=== PATIENT | female | born 1990 | race Caucasian/White ===

== ENCOUNTER → 2017-10-10 | Outpatient (CLI) | payer OTHER | LOC: M RAD 13:19 | DX: Z34.82 Encounter for supervision of other normal pregnancy, second trimester (principal); Z3A.20 20 weeks gestation of pregnancy | CPT/HCPCS: 76811 ==

== ENCOUNTER → 2017-11-02 | Outpatient (CLI) | payer OTHER | LOC: M SMT 11:20 | DX: Z36.2 Encounter for other antenatal screening follow-up (principal); Z3A.23 23 weeks gestation of pregnancy | CPT/HCPCS: 76816 ==

== ENCOUNTER → 2018-02-01 | Outpatient (REF) | payer BC | LOC: M LAB REF 13:06 | DX: Z34.83 Encounter for supervision of other normal pregnancy, third trimester (principal) | CPT/HCPCS: 87186 ==

== ENCOUNTER 2018-03-04 10:22 | Inpatient (IN) | payer BC ==
[2018-03-04] MEDS: PENICILLIN G POTASSIUM IV 5 MU in D5W MINI-BAG PLUS 100 ML IV (11:02)
[2018-03-04 11:04] LABS: HEMOGLOBIN 13.4 g/dl (12.0-15.5); MEAN CORPUSCULAR HEMOGLOBIN 31.4 pg (27.0-33.0); MEAN CORPUSCULAR HGB CONC 36.2 g/dl (32.0-36.5); MEAN CORPUSCULAR VOLUME 86.7 fl (80.0-96.0); PLATELET COUNT, AUTOMATED 143 10^3/uL (150-450); RED BLOOD COUNT 4.27 10^6/uL (4.00-5.40); RED CELL DISTRIBUTION WIDTH 12.7 % (11.5-14.5)
[2018-03-04] MEDS ORDERED: FENTANYL 2MCG/ML ROPIVACAINE 0.2% IN 0.9% NACL 200ML IVBAG As Ordered (11:26)
[2018-03-04] MEDS ORDERED: OXYTOCIN 30 UNITS IN 0.9% NaCl 500ML IV BAG (J2590) As Ordered (12:01)
[2018-03-04] MEDS ORDERED: NALOXONE INJ 0.4 MG/1 ML VIAL (J2310) IV (12:15)
[2018-03-04] MEDS ORDERED: REFRIGERATOR IV KEYS XX (12:15)
[2018-03-04] MEDS ORDERED: FENTANYL/ROPIVACAINE/NACL BAG 200 ML EPIDURAL (12:15)
[2018-03-04] MEDS ORDERED: ONDANSETRON 4MG/2ML VIAL (J2405) IV ×2 (12:15→17:30)
[2018-03-04] MEDS ORDERED: diphenhydrAMINE INJ 50MG/ML VIAL (J1200) IV (12:15)
[2018-03-04] MEDS ORDERED: EPIDURAL/PCA KEYS XX (12:15)
[2018-03-04] MEDS ORDERED: LACTATED RINGER'S 1000 ML IV (12:15)
[2018-03-04] MEDS ORDERED: ePHEDrine SULFATE 25 MG/5 ML(5MG/ML) SYRINGE IV (12:15)
[2018-03-04] MEDS ORDERED: EPIDURAL COMMENT XX (12:15)
[2018-03-04] MEDS: LR 1,000 ML IV ×2 (12:48)
[2018-03-04] MEDS: PENICILLIN G POTASSIUM IV 2.5 MU in APPROPRIATE DILUENT 1 EA IV (15:02)
[2018-03-04] MEDS: OXYTOCIN DRIP 30 UNITS in APPROPRIATE DILUENT 1 EA IV (17:19)
[2018-03-04] MEDS ORDERED: ANUSOL HC CREAM 30GM TOP (17:30)
[2018-03-04] MEDS ORDERED: METHYLERGONOVINE MALEATE 0.2 MG TAB PO (17:30)
[2018-03-04] MEDS: RHOGAM 300 MCG (1500 IU) INJ (J2790) IM (20:46)
[2018-03-04] MEDS: MEASLES,MUMPS,RUBELLA VACCINE INJ (MMR-II) (90707) SC (20:46)
[2018-03-04] MEDS: IBUPROFEN 800 MG TAB PO (20:47)
[2018-03-04] MEDS: DOCUSATE SODIUM 100 MG CAP PO (20:51)
[2018-03-04] MEDS: ACETAMINOPHEN 500 MG TAB PO (22:28)
[2018-03-05] MEDS: IBUPROFEN 800 MG TAB PO ×2 (05:41→16:02)
[2018-03-05] MEDS: ACETAMINOPHEN 500 MG TAB PO ×2 (05:45→16:55)
[2018-03-05] MEDS: PRENATAL VITAMINS CHEWABLE TABLET PO (09:43)
[2018-03-06] MEDS: ACETAMINOPHEN 500 MG TAB PO (04:13)
[2018-03-06] MEDS: IBUPROFEN 800 MG TAB PO ×2 (04:13→12:09)
[2018-03-06] MEDS: PRENATAL VITAMINS CHEWABLE TABLET PO (07:36)
[2018-03-06] MEDS: DIBUCAINE 1% OINTMENT 30GM TOP (07:39)
== END 2018-03-06 12:15 | disposition home or self-care (01) | DRG 560 ==
LOC: M LDO 10:22 → M LDI 10:45 → M OBS 18:47
PROVIDERS: Advanced Practice Midwife
PROC: 10E0XZZ Delivery of Products of Conception, External Approach (ICD-10-PCS; principal; 2018-03-04)
PROC: 0KQM0ZZ Repair Perineum Muscle, Open Approach (ICD-10-PCS; 2018-03-04)
DX: O48.0 Post-term pregnancy (principal); O99.824 Streptococcus B carrier state complicating childbirth; Z37.0 Single live birth; Z3A.40 40 weeks gestation of pregnancy; O70.1 Second degree perineal laceration during delivery

== ENCOUNTER → 2018-08-30 | Outpatient (REF) | payer BC | LOC: M LAB REF 19:05 | DX: Z12.4 Encounter for screening for malignant neoplasm of cervix (principal) | CPT/HCPCS: G0123 ==

== ENCOUNTER → 2019-05-07 | Outpatient (CLI) | payer BC ==
[~2019-05-07] MED LIST: IBUP-1114 PO; MAPA500T2 PO; PRENTAB9 PO
[2019-05-07 18:00] LABS: BASO % 0.3 % (0.0-1.0); EOS # 0.1 10^3/uL (0.0-0.50); HEMATOCRIT 35.1 % (36.0-47.0); HEMOGLOBIN 12.3 g/dl (12.0-15.5); LYMPH # 1.7 10^3/uL (1.5-6.5); LYMPH % 27.9 % (24.0-44.0); MEAN CORPUSCULAR HEMOGLOBIN 31.2 pg (27.0-33.0); MEAN CORPUSCULAR VOLUME 89.1 fl (80.0-96.0); MONO # 0.5 10^3/uL (0.0-0.8); MONO % 7.8 % (0.0-5.0); NEUTROPHILS # 3.9 10^3/uL (1.8-7.7); NEUTROPHILS % 62.8 % (36.0-66.0); PLATELET COUNT, AUTOMATED 213 10^3/uL (150-450); RED BLOOD COUNT 3.94 10^6/uL (4.00-5.40); WHITE BLOOD COUNT 6.1 10^3/uL (4.0-10.0)
[2019-05-08 09:12] LABS: HIV 1&2 SCREEN CENTAUR NEGATIVE (NEGATIVE); RUBELLA IgG QUALITATIVE IMMUNE (IMMUNE)
== END ==
LOC: M SMT 15:12
PROVIDERS: ATTEND Advanced Practice Midwife
DX: Z34.81 Encounter for supervision of other normal pregnancy, first trimester (principal); Z3A.00 Weeks of gestation of pregnancy not specified

== ENCOUNTER → 2019-05-28 | Outpatient (REF) | payer BC ==
[2019-05-28 20:20] LABS: CHLAMYDIA DNA AMPLIFICATION NEGATIVE (NEGATIVE); GC DNA AMPLIFICATION NEGATIVE (NEGATIVE)
== END ==
LOC: M LAB REF 17:55
PROVIDERS: ATTEND Advanced Practice Midwife
DX: Z34.80 Encounter for supervision of other normal pregnancy, unspecified trimester (principal)

== ENCOUNTER → 2019-07-11 | Outpatient (CLI) | payer BC ==
--- NOTE | 2019-07-11 19:09 | REP ---
Clinical: Anatomical evaluation. Comparison: None . Findings: Examination demonstrates a single live intrauterine in breech presentation. motion is identified by technologist. Placenta is noted anterior and grade zero without evidence for placenta previa or abruption. Amniotic fluid volume is normal. Cervix measures 3.0 cm in length and appears closed. No evidence for nuchal cord. Gestational age by LMP 19 weeks 2 days with SHAKA 12/03/2019 . Gestational age by current measurements 19 weeks 1 day with SHAKA 12/04/2019 . FHR equals 142 beats per minute. BPD 4.6 cm 19 weeks 5 days HC 16.7 cm 19 weeks 3 days AC 13.5 cm 19 weeks 0 days FL 2.8 cm 18 weeks 3 day HL 2.8 cm 19 weeks 0 day HC/AC ratio 1.24 Estimated weight 259 grams ( 29 percentile). Anatomical assessment demonstrates normal structures including cranium, choroid plexus, cavum, cerebellum/posterior fossa, facial features, lungs, ventricular outflow tracts, diaphragm, stomach, cord insertion/three-vessel cord, kidneys/bladder, spine, and extremities. Four-chamber heart view demonstrates echogenic focus within the left cardiac ventricle likely prominent chordae tendineae. Impression: Single live intrauterine in breech presentation demonstrating appropriate interval growth. Anatomical findings as described above. Electronically Signed by Norris Plascencia MD 07/11/2019 07:00 P
== END ==
LOC: M RAD 12:29
PROVIDERS: ATTEND Advanced Practice Midwife
DX: Z36.89 Encounter for other specified antenatal screening (principal); Z3A.19 19 weeks gestation of pregnancy

== ENCOUNTER → 2019-11-13 | Outpatient (REF) | payer OTHER | LOC: M WHC 10:35 | PROVIDERS: ATTEND Specialist | DX: Z34.83 Encounter for supervision of other normal pregnancy, third trimester (principal) ==

== ENCOUNTER 2019-11-30 00:06 | Inpatient (IN) | payer BC, OTHER ==
[~2019-11-30] VITALS: Ht 162.6 cm; Wt 66.1 kg
[2019-11-30] MEDS ORDERED: PENICILLIN G POTASSIUM IV 5 MU in D5W MINI-BAG PLUS 100 ML IV STA (00:17)
[2019-11-30] MEDS ORDERED: LACTATED RINGER'S 1000 ML IV STA (00:17)
[2019-11-30] MEDS ORDERED: LR 1,000 ML IV SCH ×2 (00:17→01:39)
[2019-11-30] MEDS ORDERED: OXYTOCIN 30 UNITS IN 0.9% NaCl 500ML IV BAG (J2590) As Ordered ONE (00:30)
[2019-11-30 00:31] LABS: HEMATOCRIT 36.8 % (36.0-47.0); HEMOGLOBIN 12.9 g/dl (12.0-15.5); MEAN CORPUSCULAR HEMOGLOBIN 31.8 pg (27.0-33.0); MEAN CORPUSCULAR HGB CONC 35.1 g/dl (32.0-36.5); MEAN CORPUSCULAR VOLUME 90.6 fl (80.0-96.0); PLATELET COUNT, AUTOMATED 143 10^3/uL (150-450); RED BLOOD COUNT 4.06 10^6/uL (4.00-5.40); WHITE BLOOD COUNT 12.5 10^3/uL (4.0-10.0)
[2019-11-30 00:46] VITALS: BP 107/57
[2019-11-30] MEDS ORDERED: OXYTOCIN DRIP 30 UNITS in IV 1 EA IV SCH (01:39)
[2019-11-30] MEDS ORDERED: ACETAMINOPHEN TAB 650MG DOSE (2X325MG) PO PRN (01:45)
[2019-11-30] MEDS ORDERED: PROMETHAZINE 25 MG TAB PO PRN (01:45)
[2019-11-30] MEDS ORDERED: IBUPROFEN 600 MG TAB PO PRN (01:45)
[2019-11-30] MEDS ORDERED: DIBUCAINE 1% OINTMENT 30GM TOP PRN (01:45)
[2019-11-30] MEDS ORDERED: MEASLES,MUMPS,RUBELLA VACCINE INJ (MMR-II) (90707) SC SCH (01:45)
[2019-11-30] MEDS ORDERED: ONDANSETRON 4MG/2ML VIAL (J2405) IV PRN (01:45)
[2019-11-30] MEDS ORDERED: RHOGAM 300 MCG (1500 IU) INJ (J2790) IM SCH (01:45)
[2019-11-30 01:49] VITALS: BP 105/69
[2019-11-30 02:22] VITALS: BP 112/60
[2019-11-30] MEDS: IBUPROFEN 800 MG TAB PO PRN ×3 (02:32→22:01)
[2019-11-30 02:34] VITALS: BP 114/61
[2019-11-30 03:30] VITALS: BP 126/59
[2019-11-30] MEDS: ACETAMINOPHEN 500 MG TAB PO PRN ×2 (04:18→12:41)
[2019-11-30] MEDS: DOCUSATE SODIUM 100 MG CAP PO PRN ×2 (04:18→22:01)
[2019-11-30] MEDS ORDERED: PENICILLIN G POTASSIUM IV 2.5 MU in IV 1 EA IV SCH (04:30)
[2019-11-30] MEDS ORDERED: LIDOCAINE 1% MDV 20ML VIAL SC ONE (05:30)
[2019-11-30 06:00] VITALS: BP 110/55
[2019-11-30] MEDS: PRENATAL VITAMINS CHEWABLE TABLET PO SCH (09:12)
[2019-12-01] MEDS: ACETAMINOPHEN 500 MG TAB PO PRN ×2 (05:56→21:00)
[2019-12-01 06:00] VITALS: BP 114/64
[2019-12-01] MEDS: IBUPROFEN 800 MG TAB PO PRN ×2 (09:54→18:20)
[2019-12-01] MEDS: PRENATAL VITAMINS CHEWABLE TABLET PO SCH (09:54)
[2019-12-01 18:21] VITALS: BP 105/58
[2019-12-01] MEDS: DOCUSATE SODIUM 100 MG CAP PO PRN (20:59)
[2019-12-02 06:00] VITALS: BP 115/56
[2019-12-02] MEDS: PRENATAL VITAMINS CHEWABLE TABLET PO SCH (09:00)
== END 2019-12-02 13:10 | disposition home or self-care (01) | DRG 560 ==
LOC: M LDO 00:06 → M LDI 00:14 → M OBS 03:20
PROVIDERS: ADMIT Obstetrics & Gynecology; ATTEND Obstetrics & Gynecology
PROC: 10E0XZZ Delivery of Products of Conception, External Approach (ICD-10-PCS; principal; 2019-11-30)
PROC: 0KQM0ZZ Repair Perineum Muscle, Open Approach (ICD-10-PCS; 2019-11-30)
DX: O99.824 Streptococcus B carrier state complicating childbirth (principal); O69.81X0 Labor and delivery complicated by cord around neck, without compression, not applicable or unspecified; Z3A.39 39 weeks gestation of pregnancy; Z37.0 Single live birth; O70.1 Second degree perineal laceration during delivery

== ENCOUNTER → 2020-03-28 | Outpatient (REF) | payer OTHER | LOC: M SFHCWAGY 09:58 | PROVIDERS: ATTEND Nurse Practitioner Women's Health | DX: N84.2 Polyp of vagina (principal) ==

== ENCOUNTER → 2021-02-10 | Outpatient (REF) | payer OTHER | LOC: M SFHCWAGY 13:13 | PROVIDERS: ATTEND Advanced Practice Midwife | DX: Z12.4 Encounter for screening for malignant neoplasm of cervix (principal) ==

== ENCOUNTER 2021-06-06 13:10 | Emergency (ER) | payer OTHER ==
[~2021-06-06] VITALS: Ht 165.1 cm; Wt 52.3 kg
[2021-06-06 14:27] LABS: HEMATOCRIT 35.9 % (36.0-47.0); HEMOGLOBIN 12.4 g/dl (12.0-15.5); MEAN CORPUSCULAR HEMOGLOBIN 30.5 pg (27.0-33.0); MEAN CORPUSCULAR HGB CONC 34.5 g/dl (32.0-36.5); MEAN CORPUSCULAR VOLUME 88.4 fl (80.0-96.0); PLATELET COUNT, AUTOMATED 194 10^3/uL (150-450); RED BLOOD COUNT 4.06 10^6/uL (4.00-5.40)
--- NOTE | 2021-06-06 15:05 | REP ---
INDICATION: VB preg r/o ectopic. COMPARISON: None. TECHNIQUE: Transvesical and transvaginal imaging. FINDINGS: The uterus measures 9.3 x 4.8 x 5.7 cm. The endometrial echo complex measures 1.6 cm in thickness. Within the ECC there is a tiny anechoic structure with increased echoes surrounding it consistent with a decidual reaction. The suspected tiny gestational sac has a mean diameter of which is consistent with a 4 week 5 day gestational age. Doppler interrogation of the sac shows no cardiac activity. There is no echogenic material within the sac that would suggest a pole at this time. The right ovary measures 4.3 x 1.7 x 2.3 cm and is within normal limits with an RI 0.53. The left ovary measures 3.2 x 2.4 x 2.8 cm and is within normal limits with an RI of point 5 1. There is a trace amount of free fluid seen in the cul-de-sac likely physiologic. IMPRESSION: Early OB ultrasound versus blighted ovum or missed AB. Follow-up is recommended. <Electronically signed by Berry Bran > 06/06/21 [id number]
[2021-06-06 15:47] VITALS: BP 136/88
== END 2021-06-06 15:48 | disposition home or self-care (01) ==
LOC: M ED 13:10
DX: O20.0 Threatened abortion (principal); Z3A.00 Weeks of gestation of pregnancy not specified

== ENCOUNTER → 2021-11-23 | Outpatient (CLI) | payer OTHER | LOC: M WHC 11:59 | PROVIDERS: ATTEND Obstetrics & Gynecology | DX: Z36.2 Encounter for other antenatal screening follow-up (principal); Z3A.20 20 weeks gestation of pregnancy ==

== ENCOUNTER → 2022-01-19 | Outpatient (CLI) | payer OTHER ==
[2022-01-19 13:28] LABS: HEMATOCRIT 34.6 % (36.0-47.0); HEMOGLOBIN 11.8 g/dl (12.0-15.5); MEAN CORPUSCULAR HEMOGLOBIN 32.7 pg (27.0-33.0); MEAN CORPUSCULAR HGB CONC 34.1 g/dl (32.0-36.5); MEAN CORPUSCULAR VOLUME 95.8 fl (80.0-96.0); PLATELET COUNT, AUTOMATED 150 10^3/uL (150-450); RED BLOOD COUNT 3.61 10^6/uL (4.00-5.40); WHITE BLOOD COUNT 6.2 10^3/uL (4.0-10.0)
== END ==
LOC: M PLALAB 09:47
PROVIDERS: ATTEND Advanced Practice Midwife
DX: Z36.89 Encounter for other specified antenatal screening (principal)

== ENCOUNTER → 2022-03-24 | Outpatient (REF) | payer OTHER | LOC: M SFHCWAGY 13:19 | PROVIDERS: ATTEND Obstetrics & Gynecology | DX: Z36.85 Encounter for antenatal screening for Streptococcus B (principal) ==

== ENCOUNTER 2022-04-06 02:48 | Inpatient (IN) | payer OTHER ==
[~2022-04-06] VITALS: Ht 165.1 cm; Wt 67.8 kg
[2022-04-06] MEDS ORDERED: PENICILLIN G POTASSIUM IV 5 MU in D5W MINI-BAG PLUS 100 ML IV STA (03:11)
[2022-04-06] MEDS ORDERED: LIDOCAINE 1% MDV 20ML VIAL INFIL PRN (03:15)
[2022-04-06] MEDS ORDERED: OXYTOCIN DRIP 30 UNITS in IV 1 EA IV PRN (03:15)
[2022-04-06] MEDS ORDERED: TRANEXAMIC ACID INJection 1,000 MG in NS 100 ML IV PRN (03:15)
[2022-04-06] MEDS ORDERED: METHYLERGONOVINE MALEATE 0.2 MG/ML VIAL (J2210) IM PRN (03:15)
[2022-04-06] MEDS ORDERED: CARBOPROST TROMETHAMINE 250 MCG/ML AMP IM PRN (03:15)
[2022-04-06 03:33] LABS: HEMATOCRIT 36.8 % (36.0-47.0); HEMOGLOBIN 13.3 g/dl (12.0-15.5); MEAN CORPUSCULAR HEMOGLOBIN 32.3 pg (27.0-33.0); MEAN CORPUSCULAR HGB CONC 36.1 g/dl (32.0-36.5); MEAN CORPUSCULAR VOLUME 89.3 fl (80.0-96.0); PLATELET COUNT, AUTOMATED 142 10^3/uL (150-450); RED BLOOD COUNT 4.12 10^6/uL (4.00-5.40); WHITE BLOOD COUNT 9.9 10^3/uL (4.0-10.0)
[2022-04-06 03:51] VITALS: BP 104/58
[2022-04-06] MEDS ORDERED: IBUPROFEN 600MG TAB PO PRN (04:55)
[2022-04-06] MEDS ORDERED: RHOGAM 300 MCG (1500 IU) INJ (J2790) IM SCH (04:55)
[2022-04-06] MEDS ORDERED: ACETAMINOPHEN TAB 650MG DOSE (2X325MG) PO PRN (04:55)
[2022-04-06] MEDS ORDERED: DIBUCAINE 1% OINTMENT 30GM TOP PRN (04:55)
[2022-04-06] MEDS ORDERED: ANUSOL HC CREAM 30GM TOP PRN (04:55)
[2022-04-06] MEDS ORDERED: IBUPROFEN 800 MG TAB PO PRN (04:55)
[2022-04-06] MEDS ORDERED: MOM 30ML SUSPENSION UDC PO PRN (04:55)
[2022-04-06] MEDS: PRENATAL VITAMINS CHEWABLE TABLET PO SCH (09:00)
[2022-04-06] MEDS: ACETAMINOPHEN 500 MG TAB PO PRN ×2 (12:04→20:24)
[2022-04-06 18:00] VITALS: BP 106/69
[2022-04-06] MEDS: DOCUSATE SODIUM 100MG CAPSULE PO PRN (20:24)
[2022-04-07 06:05] VITALS: BP 102/60
[2022-04-07] MEDS: PRENATAL VITAMINS CHEWABLE TABLET PO SCH (08:25)
[2022-04-07] MEDS: ACETAMINOPHEN 500 MG TAB PO PRN ×2 (08:25→17:40)
[2022-04-07 18:00] VITALS: BP_SYST 122; BP_DIAS 61; BP_DIAS 70
[2022-04-07] MEDS: DOCUSATE SODIUM 100MG CAPSULE PO PRN (19:47)
[2022-04-08 06:00] VITALS: BP 110/68
[2022-04-08] MEDS: PRENATAL VITAMINS CHEWABLE TABLET PO SCH (08:08)
[2022-04-08] MEDS ORDERED: MEASLES,MUMPS,RUBELLA VACCINE INJ (MMR-II) (90707) SC.IMMUN ONE (09:00)
[2022-04-08] MEDS ORDERED: ACET-683 PO (11:03)
[2022-04-08] MEDS ORDERED: COLA100C5 PO (11:03)
[2022-04-08] MEDS ORDERED: IBUP-1022 PO (11:03)
== END 2022-04-08 12:00 | disposition home or self-care (01) | DRG 560 ==
LOC: M LDO 02:48 → M LDI 03:14 → M OBS 06:40
PROVIDERS: ADMIT Advanced Practice Midwife; ATTEND Advanced Practice Midwife
PROC: 10E0XZZ Delivery of Products of Conception, External Approach (ICD-10-PCS; principal; 2022-04-06)
DX: O69.81X0 Labor and delivery complicated by cord around neck, without compression, not applicable or unspecified (principal); O99.824 Streptococcus B carrier state complicating childbirth; Z3A.39 39 weeks gestation of pregnancy; Z37.0 Single live birth

== ENCOUNTER → 2022-05-27 | Outpatient (CLI) | payer OTHER ==
[~2022-05-27] MED LIST changes: +ACET-683 PO; +COLA100C5 PO; +IBUP-1022 PO
== END ==
LOC: M RAD 07:49
PROVIDERS: ATTEND Nurse Practitioner Family
DX: R10.31 Right lower quadrant pain (principal)

== ENCOUNTER → 2022-08-27 | Outpatient (CLI) | payer OTHER ==
[~2022-08-27] MED LIST changes: +GASTROGRAFIN SOLUTION 30ML As Ordered ONE; +ISOVUE-370 76% 100ML VIAL As Ordered ONE
== END ==
LOC: M RAD 14:57
PROVIDERS: ATTEND Surgery
DX: R10.84 Generalized abdominal pain (principal); R10.31 Right lower quadrant pain

== ENCOUNTER → 2022-08-31 | Outpatient (REF) | payer OTHER ==
[~2022-08-31] MED LIST changes: -GASTROGRAFIN SOLUTION 30ML As Ordered ONE; -ISOVUE-370 76% 100ML VIAL As Ordered ONE
== END ==
LOC: M SFHCWAGY 10:10
PROVIDERS: ATTEND Advanced Practice Midwife
DX: Z12.4 Encounter for screening for malignant neoplasm of cervix (principal); R87.610 Atypical squamous cells of undetermined significance on cytologic smear of cervix (ASC-US)

== ENCOUNTER → 2022-09-21 | Outpatient (CLI) | payer OTHER | LOC: M WHC 13:04 | PROVIDERS: ATTEND Advanced Practice Midwife | DX: R10.31 Right lower quadrant pain (principal) ==

== ENCOUNTER → 2022-10-13 | Outpatient (REF) | payer OTHER | LOC: M LAB REF 09:02 | PROVIDERS: ATTEND Surgery | DX: L72.0 Epidermal cyst (principal) ==

== ENCOUNTER → 2023-08-22 | Outpatient (REF) | payer OTHER ==
[2023-08-22 17:58] LABS: HEMATOCRIT 38.5 % (36.0-47.0); HEMOGLOBIN 13.4 g/dl (12.0-15.5); MEAN CORPUSCULAR HGB CONC 34.8 g/dl (32.0-36.5); MEAN CORPUSCULAR VOLUME 89.1 fl (80.0-96.0); PLATELET COUNT, AUTOMATED 229 10^3/uL (150-450); RED BLOOD COUNT 4.32 10^6/uL (4.00-5.40); WHITE BLOOD COUNT 4.1 10^3/uL (4.0-10.0)
[2023-08-22 18:38] LABS: ALBUMIN 4.4 G/DL (3.2-5.2); ALKALINE PHOSPHATASE 56 U/L (46-116); ALT/SGPT 13 U/L (7.0-40); AST/SGOT 9 U/L (<34); BILIRUBIN,TOTAL 0.6 MG/DL (0.3-1.2); BLOOD UREA NITROGEN 17 MG/DL (9-23); CALCIUM LEVEL 9.2 MG/DL (8.5-10.1); CARBON DIOXIDE LEVEL 27 MMOL/L (20-31); CHLORIDE LEVEL 105 MMOL/L (98-107); CHOLESTEROL LEVEL 172 MG/DL (<200); CHOLESTEROL RISK RATIO 2.26 (<5); CREATININE FOR GFR 0.75 MG/DL (0.55-1.30); FREE T4 1.13 NG/DL (0.89-1.76); GLOMERULAR FILTRATION RATE > 60.0 (>60); GLUCOSE, FASTING 109 MG/DL (60-100); HDL CHOLESTEROL 75.9 MG/DL (>40); LDL CHOLESTEROL 87.1 MG/DL (<100); NON-HDL-C 96.1 MG/DL; POTASSIUM SERUM 3.9 MMOL/L (3.5-5.1); SODIUM LEVEL 138 MMOL/L (136-145); THYROID STIMULATING HORMONE 1.071 uIU/ML (0.55-4.78); TOTAL PROTEIN 7.3 G/DL (5.7-8.2); TRIGLYCERIDES LEVEL 45 MG/DL (<150)
== END ==
LOC: M SFHCCLAY 13:41
PROVIDERS: ATTEND Nurse Practitioner Family
DX: Z00.00 Encounter for general adult medical examination without abnormal findings (principal)

== ENCOUNTER → 2023-09-02 | Outpatient (REF) | payer OTHER | LOC: M SFHCWAGY 18:13 | PROVIDERS: ATTEND Advanced Practice Midwife | DX: Z12.4 Encounter for screening for malignant neoplasm of cervix (principal) ==

== ENCOUNTER → 2023-10-27 | Outpatient (CLI) | payer OTHER ==
[~2023-10-27] MED LIST changes: +PROHANCE 279.3MG/ML 15ML VIAL As Ordered ONE
== END ==
LOC: M RAD 08:38
PROVIDERS: ATTEND Surgery
DX: R10.31 Right lower quadrant pain (principal)
CPT/HCPCS: 74183; A9576

== ENCOUNTER 2023-11-17 11:07 | Day surgery (SDC) | payer OTHER ==
[~2023-11-17] VITALS: Ht 165.1 cm; Wt 52.2 kg
[~2023-11-17 11:07] MED LIST changes: +D 50CAP3 PO; +KP F1200 PO; -PROHANCE 279.3MG/ML 15ML VIAL As Ordered ONE
[2023-11-17] MEDS: NS 1,000 ML IV ONE (11:47)
[2023-11-17 13:23] VITALS: TEMP 97
[2023-11-17 13:42] VITALS: BP 89/55; O2SAT 98
== END 2023-11-17 14:12 | disposition home or self-care (01) ==
LOC: M OPP 11:07
PROVIDERS: ATTEND Surgery
DX: R10.31 Right lower quadrant pain (principal); Q43.8 Other specified congenital malformations of intestine

== ENCOUNTER → 2024-05-28 | Outpatient (CLI) | payer OTHER ==
[2024-05-28 12:41] LABS: HEMATOCRIT 33.7 % (36.0-47.0); MEAN CORPUSCULAR HEMOGLOBIN 31.8 pg (27.0-33.0); MEAN CORPUSCULAR HGB CONC 35.6 g/dl (32.0-36.5); MEAN CORPUSCULAR VOLUME 89.4 fl (80.0-96.0); PLATELET COUNT, AUTOMATED 190 10^3/uL (150-450); RED BLOOD COUNT 3.77 10^6/uL (4.00-5.40); WHITE BLOOD COUNT 5.7 10^3/uL (4.0-10.0)
[2024-05-28 13:43] LABS: HIV 1&2 SCREEN NEGATIVE (NEGATIVE)
[2024-05-28 13:51] LABS: HEPATITIS C VIRUS ABY INDEX 0.02 INDEX (<0.8)
[2024-05-28 14:19] LABS: GC DNA AMPLIFICATION NEGATIVE (NEGATIVE)
== END ==
LOC: M PLALAB 10:30
PROVIDERS: ATTEND Advanced Practice Midwife
DX: Z34.81 Encounter for supervision of other normal pregnancy, first trimester (principal)

== ENCOUNTER → 2024-07-26 | Outpatient (CLI) | payer OTHER | LOC: M WHC 09:48 | PROVIDERS: ATTEND Obstetrics & Gynecology | DX: Z34.82 Encounter for supervision of other normal pregnancy, second trimester (principal); Z3A.20 20 weeks gestation of pregnancy ==

== ENCOUNTER → 2024-08-28 | Outpatient (CLI) | payer OTHER ==
[2024-08-28 14:27] LABS: HEMATOCRIT 34.6 % (36.0-47.0); HEMOGLOBIN 11.6 g/dl (12.0-15.5); MEAN CORPUSCULAR HEMOGLOBIN 32.4 pg (27.0-33.0); MEAN CORPUSCULAR HGB CONC 33.5 g/dl (32.0-36.5); MEAN CORPUSCULAR VOLUME 96.6 fl (80.0-96.0); PLATELET COUNT, AUTOMATED 175 10^3/uL (150-450); RED BLOOD COUNT 3.58 10^6/uL (4.00-5.40); WHITE BLOOD COUNT 6.3 10^3/uL (4.0-10.0)
[2024-08-28 14:52] LABS: GLUCOSE CHALLENGE TEST 1 HOUR 92 MG/DL (LESS THAN 140)
[2024-08-28 15:27] LABS: HIV 1&2 SCREEN NEGATIVE (NEGATIVE)
[2024-08-28 15:34] LABS: HEPATITIS C VIRUS ABY INDEX < 0.02 INDEX (<0.8)
== END ==
LOC: M PLALAB 09:52
PROVIDERS: ATTEND Advanced Practice Midwife
DX: Z34.82 Encounter for supervision of other normal pregnancy, second trimester (principal)

== ENCOUNTER → 2024-10-30 | Outpatient (REF) | payer OTHER | LOC: M PLALAB 09:20 | PROVIDERS: ATTEND Advanced Practice Midwife | DX: Z34.83 Encounter for supervision of other normal pregnancy, third trimester (principal) ==

== ENCOUNTER 2024-11-28 20:24 | Inpatient (IN) | payer OTHER ==
[~2024-11-28] VITALS: Ht 165.1 cm; Wt 68.6 kg
[2024-11-28 20:33] VITALS: BP 133/84
[2024-11-28] MEDS ORDERED: LIDOCAINE 1% MDV 20ML VIAL INFIL PRN (20:45)
[2024-11-28] MEDS ORDERED: OXYTOCIN DRIP 30 UNITS in IV 1 EA IV PRN (20:45)
[2024-11-28] MEDS ORDERED: METHYLERGONOVINE MALEATE 0.2MG/ML 1ML VIAL IM PRN (20:45)
[2024-11-28] MEDS ORDERED: OXYTOCIN INJ 10UNITS/ML 1ML VIAL IM PRN (20:45)
[2024-11-28] MEDS ORDERED: CARBOPROST TROMETHAMINE 250 MCG/ML AMP IM PRN (20:45)
[2024-11-28 21:04] LABS: HEMATOCRIT 36.5 % (36.0-47.0); HEMOGLOBIN 12.6 g/dl (12.0-15.5); MEAN CORPUSCULAR HGB CONC 34.5 g/dl (32.0-36.5); MEAN CORPUSCULAR VOLUME 92.6 fl (80.0-96.0); PLATELET COUNT, AUTOMATED 142 10^3/uL (150-450); RED BLOOD COUNT 3.94 10^6/uL (4.00-5.40); WHITE BLOOD COUNT 8.4 10^3/uL (4.0-10.0)
[2024-11-28 22:00] LABS: HIV 1&2 SCREEN NEGATIVE (NEGATIVE)
[2024-11-28 22:08] LABS: HEPATITIS C VIRUS ABY INDEX 0.04 INDEX (<0.8)
[2024-11-28] MEDS: OXYTOCIN DRIP 30 UNITS in IV 1 EA IV PRN (22:35)
[2024-11-28] MEDS: TRANEXAMIC ACID INJection 1,000 MG in NS 100 ML IV PRN (22:35)
[2024-11-28 22:43] VITALS: BP 193/146
[2024-11-28 22:54] VITALS: BP 109/55
[2024-11-28] MEDS ORDERED: RHOGAM 300MCG (1500IU) INJ IM SCH (22:55)
[2024-11-28] MEDS ORDERED: DOCUSATE SODIUM 100MG CAPSULE PO PRN (22:55)
[2024-11-28] MEDS ORDERED: ACETAMINOPHEN 500 MG TAB PO PRN (22:55)
[2024-11-28] MEDS ORDERED: ACETAMINOPHEN 325 MG TAB PO PRN (22:55)
[2024-11-28] MEDS ORDERED: METHYLERGONOVINE MALEATE 0.2 MG TAB PO PRN (22:55)
[2024-11-28] MEDS ORDERED: IBUPROFEN 600MG TAB PO PRN (22:55)
[2024-11-28 23:09] VITALS: BP 111/57
[2024-11-28 23:24] VITALS: BP 112/59
[2024-11-29] MEDS: IBUPROFEN 800 MG TAB PO PRN (00:43)
[2024-11-29 01:19] VITALS: BP 107/57; O2SAT 98
[2024-11-29] MEDS: DIBUCAINE 1% OINTMENT 30GM TOP PRN (02:55)
[2024-11-29 06:00] VITALS: BP 106/55; O2SAT 97
[2024-11-29] MEDS: PRENATAL VITAMINS CHEWABLE TABLET PO SCH (08:55)
[2024-11-29 10:00] VITALS: BP 107/58; O2SAT 97
[2024-11-29 18:00] VITALS: BP 109/59; O2SAT 98
[2024-11-30 02:00] VITALS: BP 112/56; O2SAT 97
[2024-11-30 06:00] VITALS: BP 105/59; O2SAT 98
[2024-11-30] MEDS: MEASLES,MUMPS,RUBELLA VACCINE INJ (MMR-II) SC.IMMUN ONE (09:00)
== END 2024-11-30 19:30 | disposition home or self-care (01) | DRG 560 ==
LOC: M LDO 20:24 → M LDI 20:46 → M OBS 11-29 01:05
PROVIDERS: ADMIT Advanced Practice Midwife; ATTEND Advanced Practice Midwife
PROC: 10E0XZZ Delivery of Products of Conception, External Approach (ICD-10-PCS; principal; 2024-11-28)
DX: O48.0 Post-term pregnancy (principal); Z37.0 Single live birth; Z3A.40 40 weeks gestation of pregnancy

== ENCOUNTER → 2025-07-16 | Outpatient (REF) | payer OTHER ==
[~2025-07-16] MED LIST changes: -IBUP-1022 PO; +IBUP600T42 PO
[2025-07-18 12:56] LABS: HPV APTIMA Not Detected (Not Detected)
== END ==
LOC: M PLALAB 15:38
PROVIDERS: ATTEND Advanced Practice Midwife
DX: Z12.4 Encounter for screening for malignant neoplasm of cervix (principal)
CPT/HCPCS: 87624; G0123